=== PATIENT | male | born 1995 | race Caucasian/White ===

== ENCOUNTER 2021-09-07 19:26 | Emergency (ER) | payer SELFPAY ==
[~2021-09-07] VITALS: Ht 177.8 cm; Wt 136.1 kg
[2021-09-07 19:30] VITALS: BP 147/92
[2021-09-07] MEDS ORDERED: LORazepam 2 MG/ML VIAL IM ONE (19:40)
[2021-09-07] MEDS ORDERED: HALOPERIDOL IM 5 MG/ML VIAL IM ONE (19:40)
--- NOTE | 2021-09-07 19:40 | NUR ---
PT BROUGHT TO BED 6 VIA BATOOL CORTES
[2021-09-07] MEDS ORDERED: NACL 0.9% 1,000 ML IV ONE (19:45)
[2021-09-07 21:14] LABS: BASOPHILS # (AUTO) 0.2 K/uL (0.00-0.22); BASOPHILS % (AUTO) 1.1 % (0.0-2.0); HEMATOCRIT 44.5 % (36-52); HEMOGLOBIN 14.5 g/dL (12.0-18.0); LYMPHOCYTES # (AUTO) 1.3 K/uL (2.0-11.5); LYMPHOCYTES % (AUTO) 8.8 % (20.5-51.1); MEAN CORPUSCULAR HEMOGLOBIN 29 pg (27-31); MEAN CORPUSCULAR HGB CONC 33 g/dL (33-37); MEAN CORPUSCULAR VOLUME 87.8 fL (80-94); MONOCYTES # (AUTO) 0.6 K/uL (0.8-1.0); NEUTROPHILS # (AUTO) 12.3 K/uL (1.8-7.7); NEUTROPHILS % (AUTO) 86.1 % (42.2-75.2); PLATELET COUNT (AUTO) 371 K/uL (140-450); RED BLOOD CELL COUNT(AUTO) 5.06 MIL/uL (4.20-6.10); RED CELL DISTRIBUTION WIDTH 13.7 % (11.6-13.7); WHITE BLOOD COUNT (AUTO) 14.2 K/uL (4.8-10.8)
[2021-09-07 21:33] LABS: ALBUMIN 4.3 g/dL (3.4-5.0); ANION GAP 15.3 (8-16); ASPARTATE AMINOTRANSFERASE 26 U/L (15-37); CHLORIDE 103 mmol/L (98-107); CREATININE 1.7 mg/dL (0.6-1.3); GFR ARICAN-AMERICAN 62 mL/min (>90); GLUCOSE 90 mg/dL (74-106); POTASSIUM 3.3 mmol/L (3.5-5.1); SODIUM SERUM 141 mmol/L (136-145); TOTAL BILIRUBIN 0.3 mg/dL (0.0-1.0); UREA NITROGEN, BLOOD 16 mg/dL (7-18)
[2021-09-07 21:40] LABS: ACETAMINOPHEN < 0.5 ug/ml (10-30); SALICYLATE < 2.8 mg/dL (2.8-20.0)
--- NOTE | 2021-09-07 21:45 | NUR ---
urine collected and given to shon
--- NOTE | 2021-09-07 22:25 | NUR ---
walked over [facility]alis and pcr to lab. handed to nimco
[2021-09-07 22:42] LABS: BARBITURATE, URINE NEGATIVE ng/ml (NEG <=200); BENZODIAZEPINE, URINE NEGATIVE ng/mL (NEG <=200); CANNABINOID, URINE NEGATIVE ng/mL (NEG <=50); COCAINE, URINE NEGATIVE ng/mL (NEG <=300); OPIATE, URINE NEGATIVE ng/mL (NEG <=2000); PHENCYCLIDINE SCREEN,URINE NEGATIVE ng/mL (NEG <=25)
--- NOTE | 2021-09-07 23:45 | NUR ---
PT BIBA FROM HOME. PT PUT ON 5150 HOLD FOR DTS DTO. PT WAS THREATENING HIS FAMILY. WHEN FAMIY CALLED PD PT FELL TO THE FLOOR AND SAID HE WAS HAVING A STROKE. PT CAME IN YELLING, FLIGHT OF IDEAS AND REPEATING PHRASES LIKE "JACI IS SAVIOR" "BLESSED BE THY NAME". PT HAS OLD CUTS TO STOMACH, ARMS AND LEGS. PT DENIES STATES HIS BEEN OFF OF PYSCH MEDS BECASE THEY GIVE HIM SUICIDAL THOUGHTS. HX: SCHIZOPHRENIA NKDA PT STATES HE WAS AT [facility] A COUPLE DAYS AGO FOR A CUT ON HIS FOOT. PT WAS D/CD WITH NO PAIN MEDS.
--- NOTE | 2021-09-08 00:05 | NUR ---
PT ADMIT TO TAKING METH. PT STATES HE WOULD RATHER HAVE METH THAN PSYCH DRUGS BECAUSE IT MAKES HIM FEEL BETTER. PT SEEMD TO BE CALMING DOWN AND MORE RECEPTIVE TO FOLLOWING DIRECTION.
--- NOTE | 2021-09-08 07:28 | NUR ---
Pt report given to YA. Transfer of care at this time.
--- NOTE | 2021-09-08 07:45 | NUR ---
PT TALKING WITH DR Brennan
--- NOTE | 2021-09-08 07:54 | NUR ---
PT DONE SPEAKING WITH DR Montanez, DR Montanez IS OK TO DISCHARGE THE PT HOME. DR Montanez ASKED TO CALL THE FAMILY TO SEE IF OK FOR THE PT TO GO HOME BECAUSE SHE FEELS THE PT SOUNDS CLEAR AND SHE THINKS HE IS NO HARM TO OTHERS. DR Montanez WILL DC PT WITH NEW MEDS.
--- NOTE | 2021-09-08 08:06 | NUR ---
TALKED TO PT MOTHER ROE, SHE WILL PICK THE PT UP SOON WE HAVE ORDERS. WILL CALL DR Montanez BACK WITH UPDATE.
--- NOTE | 2021-09-08 08:10 | NUR ---
LEFT A MESSAGE FOR DR Brennan
--- NOTE | 2021-09-08 08:21 | NUR ---
PT DONE WITH BREAKFAST.
--- NOTE | 2021-09-08 10:38 | NUR ---
CALLED THE PT MOTHER ROE, SHE WILL PICK THE PT UP IN 20-30 MIN. BELONGINGS ARE BACK FROM [employer]URITY, PT IS GETTING READY.
[2021-09-08 10:48] VITALS: BP 144/74
--- NOTE | 2021-09-08 10:51 | NUR ---
Chart checked and completed. The patient's care was reviewed and supervised by Joana Jaquez RN.
== END 2021-09-08 10:48 | disposition home or self-care (01) ==
LOC: MED 19:26
DX: F29 Unspecified psychosis not due to a substance or known physiological condition (principal); F15.10 Other stimulant abuse, uncomplicated; Z20.822 Contact with and (suspected) exposure to COVID-19
CPT/HCPCS: 36415; 80053; 80305; 85025; 87426; 96360; 96372; 99291; G0480; G0482; J1630; J2060; J7030; U0003; 99285